=== PATIENT | female | born 1975 | race African-American/Black ===

== ENCOUNTER → 2019-06-09 | Outpatient (CLI) | payer SELFPAY ==
--- NOTE | 2019-06-09 12:43 | RADIOLOGY REPORT (SQ) ---
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 RADIONUCLIDE AND DOSE: 21.9 millicuries Tc99m HDP. The route of agent administration: Intravenous. ADDITIONAL DRUGS AND DOSES: None. TECHNIQUE: Routine delayed images at 3 hour post radionuclide injection acquired of the bony skeleto n including anterior and posterior whole-body projections and additional focused images as needed. LIMITATIONS: None. FINDINGS: BONES: Mild increased uptake in several right lower anterior ribs this may be positional o r could be related to trauma. This is not have the appearance of metastatic disease. Symmetric upta ke in the shoulders. Focal uptake in the right knee most likely degenerative. KIDNEYS: Symmetric excretion without obstruction. OTHER: No other significant finding. IMPRESSION: No evidence of metastatic disease. COMMENT: Quality measure 147: Current bone scan is compared with any available plain radiographs, p rior bone scans, and CT/MRI. TECHNICAL DOCUMENTATION: JOB ID: [id number] 2010 [employer]- All Rights Reserved Reading location - IP/workstation name: [email or web address]
== END ==
LOC: RAD 08:12
PROVIDERS: ATTEND Internal Medicine Hematology & Oncology
DX: C50.811 Malignant neoplasm of overlapping sites of right female breast (principal)
CPT/HCPCS: 78306; A9561; Q9969

== ENCOUNTER → 2019-06-11 | Outpatient (CLI) | payer SELFPAY ==
--- NOTE | 2019-06-11 09:26 | RADIOLOGY REPORT (SQ) ---
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 TECHNIQUE: CT scan of the chest performed using helical scanning technique with dynamic intravenous contrast injection. Images reviewed with lung, soft tissue and bone windows. Reconstructed coronal a nd sagittal MPR images reviewed. All images stored on PACS. All CT scanners at this facility use dose modulation, iterative reconstruction, and/or weight based d osing when appropriate to reduce radiation dose to as low as reasonably achievable (ALARA). [facility]: Dose Right [facility]: CareDose [facility]: Dose Right [facility]: Teradose 4D [facility]: Smart [employer] RADIATION DOSE: CT Rad equipment meets quality standard of care and radiation dose reduction techniq ues were employed. CTDIvol: 4.4 - 6.3 mGy. DLP: 856 mGy-cm. . LIMITATIONS: None. FINDINGS: AXILLAE: Small bilateral axillary lymph nodes. These are nonspecific. CHEST WALL: 5.8 x 3.6 cm right breast mass with decreased attenuation centrally which may represent n ecrosis. LUNGS: No nodules or masses. No pneumothorax. No infiltrates. PLEURA: No effusions. No calcifications. THYROID: No masses or significant asymmetry. HILAR AND MEDIASTINAL STRUCTURES: No identified masses or abnormal nodes. AORTA AND GREAT VESSELS: No aneurysm. No dissection. PULMONARY ARTERIES: No identified pulmonary emboli. Study not optimized for the pulmonary arteries. HEART: No pericardial effusion. HARDWARE AND LIFELINES: None. BONES: No significant finding. OTHER: No other significant finding. IMPRESSION: Large right breast mass. Small axillary lymph nodes. No other significant findings. COMPARISON: None. RADIATION DOSE: CT Rad equipment meets quality standard of care and radiation dose reduction techniq ues were employed. CTDIvol: 4.4 - 6.3 mGy. DLP: 856 mGy-cm. mGy. TECHNIQUE: CT scan of the abdomen and pelvis performed with intravenous and oral contrast using cely tito scanning technique with dynamic intravenous contrast injection. Images reviewed with lung, soft tissue and bone windows. Reconstructed coronal and sagittal MPR images reviewed. Delayed images for evaluation of the urinary system also acquired and evaluated. All images stored on PACS. All CT scanners at this facility use dose modulation, iterative reconstruction, and/or weight based d osing when appropriate to reduce radiation dose to as low as reasonably achievable (ALARA). [facility]: Dose Right [facility]: SureCare [facility]: Dose Right [facility]: Teradose 4D [facility]: [employer] FINDINGS: LIVER: Normal size. No masses. No dilated ducts. SPLEEN: Normal size. No focal lesions. PANCREAS: No masses. No significant calcifications. No adjacent inflammation or peripancreatic flui d collections. Pancreatic duct not dilated. GALLBLADDER: No identified stones by CT criteria. No inflammatory changes to suggest cholecystitis. ADRENAL GLANDS: No significant masses or asymmetry. RIGHT KIDNEY AND URETER: No solid masses. No significant calcifications. No hydronephrosis or hyd roureter. LEFT KIDNEY AND URETER: No solid masses. No significant calcifications. No hydronephrosis or hydr oureter. AORTA AND VESSELS: No aneurysm. No dissection. Renal arteries, SMA, celiac without stenosis. RETROPERITONEUM: No retroperitoneal adenopathy, hemorrhage or masses. LARGE AND SMALL BOWEL: No dilatation. No masses. No wall thickening. APPENDIX: Normal. ABDOMINAL WALL: No hernia or masses. PERITONEAL CAVITY: No free air. No free fluid. No peritoneal implants or masses. PELVIS: Heterogeneous attenuation within the uterus. Fibroids cannot be excluded. BONES: No significant or acute findings. OTHER: No other significant finding. IMPRESSION: No evidence of metastatic disease in the abdomen or pelvis. TECHNICAL DOCUMENTATION: JOB ID: [id number] Quality ID # 436: Final reports with documentation of one or more dose reduction techniques (e.g., Au tomated exposure control, adjustment of the mA and/or kV according to patient size, use of iterative reconstruction technique) 2010 [employer]- All Rights Reserved Reading location - IP/workstation name: [email or web address]
--- NOTE | 2019-06-11 09:26 | RADIOLOGY REPORT (SQ) ---
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 TECHNIQUE: CT scan of the chest performed using helical scanning technique with dynamic intravenous contrast injection. Images reviewed with lung, soft tissue and bone windows. Reconstructed coronal a nd sagittal MPR images reviewed. All images stored on PACS. All CT scanners at this facility use dose modulation, iterative reconstruction, and/or weight based d osing when appropriate to reduce radiation dose to as low as reasonably achievable (ALARA). [facility]: Dose Right [facility]: CareDose [facility]: Dose Right [facility]: Teradose 4D [facility]: Smart [employer] RADIATION DOSE: CT Rad equipment meets quality standard of care and radiation dose reduction techniq ues were employed. CTDIvol: 4.4 - 6.3 mGy. DLP: 856 mGy-cm. . LIMITATIONS: None. FINDINGS: AXILLAE: Small bilateral axillary lymph nodes. These are nonspecific. CHEST WALL: 5.8 x 3.6 cm right breast mass with decreased attenuation centrally which may represent n ecrosis. LUNGS: No nodules or masses. No pneumothorax. No infiltrates. PLEURA: No effusions. No calcifications. THYROID: No masses or significant asymmetry. HILAR AND MEDIASTINAL STRUCTURES: No identified masses or abnormal nodes. AORTA AND GREAT VESSELS: No aneurysm. No dissection. PULMONARY ARTERIES: No identified pulmonary emboli. Study not optimized for the pulmonary arteries. HEART: No pericardial effusion. HARDWARE AND LIFELINES: None. BONES: No significant finding. OTHER: No other significant finding. IMPRESSION: Large right breast mass. Small axillary lymph nodes. No other significant findings. COMPARISON: None. RADIATION DOSE: CT Rad equipment meets quality standard of care and radiation dose reduction techniq ues were employed. CTDIvol: 4.4 - 6.3 mGy. DLP: 856 mGy-cm. mGy. TECHNIQUE: CT scan of the abdomen and pelvis performed with intravenous and oral contrast using cely tito scanning technique with dynamic intravenous contrast injection. Images reviewed with lung, soft tissue and bone windows. Reconstructed coronal and sagittal MPR images reviewed. Delayed images for evaluation of the urinary system also acquired and evaluated. All images stored on PACS. All CT scanners at this facility use dose modulation, iterative reconstruction, and/or weight based d osing when appropriate to reduce radiation dose to as low as reasonably achievable (ALARA). [facility]: Dose Right [facility]: SureCare [facility]: Dose Right [facility]: Teradose 4D [facility]: [employer] FINDINGS: LIVER: Normal size. No masses. No dilated ducts. SPLEEN: Normal size. No focal lesions. PANCREAS: No masses. No significant calcifications. No adjacent inflammation or peripancreatic flui d collections. Pancreatic duct not dilated. GALLBLADDER: No identified stones by CT criteria. No inflammatory changes to suggest cholecystitis. ADRENAL GLANDS: No significant masses or asymmetry. RIGHT KIDNEY AND URETER: No solid masses. No significant calcifications. No hydronephrosis or hyd roureter. LEFT KIDNEY AND URETER: No solid masses. No significant calcifications. No hydronephrosis or hydr oureter. AORTA AND VESSELS: No aneurysm. No dissection. Renal arteries, SMA, celiac without stenosis. RETROPERITONEUM: No retroperitoneal adenopathy, hemorrhage or masses. LARGE AND SMALL BOWEL: No dilatation. No masses. No wall thickening. APPENDIX: Normal. ABDOMINAL WALL: No hernia or masses. PERITONEAL CAVITY: No free air. No free fluid. No peritoneal implants or masses. PELVIS: Heterogeneous attenuation within the uterus. Fibroids cannot be excluded. BONES: No significant or acute findings. OTHER: No other significant finding. IMPRESSION: No evidence of metastatic disease in the abdomen or pelvis. TECHNICAL DOCUMENTATION: JOB ID: [id number] Quality ID # 436: Final reports with documentation of one or more dose reduction techniques (e.g., Au tomated exposure control, adjustment of the mA and/or kV according to patient size, use of iterative reconstruction technique) 2010 [employer]- All Rights Reserved Reading location - IP/workstation name: [email or web address]
== END ==
LOC: RAD 08:05
PROVIDERS: ATTEND Internal Medicine Hematology & Oncology
DX: C50.811 Malignant neoplasm of overlapping sites of right female breast (principal)
CPT/HCPCS: 71260; 74177

== ENCOUNTER → 2019-06-23 | Outpatient (CLI) | payer SELFPAY ==
--- NOTE | 2019-06-23 16:56 | RADIOLOGY REPORT (SQ) ---
EXAM DESCRIPTION: NM MUGA REST IMAGES COMPLETED DATE/TIME: 06/23/2019 12:16 pm REASON FOR STUDY: Z08 ENCNTR FOR FOLLOW-UP EXAM AFTER TRTMT FOR MALIGNANT NEOPLASM, C50.811 M Z08 E NCNTR FOR FOLLOW-UP EXAM AFTER TRTMT FOR MALIGNANT NEOP C50.811 MALIGNANT NEOPLASM OF OVRLP SITES OF RIGHT FEMALE BR COMPARISON: None. RADIONUCLIDE AND DOSE: 25.6 mCi technetium 99m labeled red blood cells The route of agent administration: Intravenous TECHNIQUE: Following administration of the radionuclide, gated images of the heart are obtained in t hree projections. Left ventricular functional analysis performed. LIMITATIONS: None. FINDINGS: LEFT VENTRICULAR FUNCTION: EJECTION FRACTION: 65%. END-DIASTOLIC VOLUME: 205 mL. END-SYSTOLIC VOLUME: 85 mL. WALL MOTION: No focal wall motion abnormalities. OTHER: No other significant finding. IMPRESSION: NORMAL CARDIAC MUGA STUDY. NORMAL LEFT VENTRICULAR FUNCTION WITH VALUES ABOVE. TECHNICAL DOCUMENTATION: JOB ID: [id number] 2010 [employer]- All Rights Reserved Reading location - IP/workstation name: [email or web address]
== END ==
LOC: RAD 10:39
PROVIDERS: ATTEND Internal Medicine Hematology & Oncology
DX: Z08 Encounter for follow-up examination after completed treatment for malignant neoplasm (principal); C50.811 Malignant neoplasm of overlapping sites of right female breast
CPT/HCPCS: 78472; A9560; Q9969

== ENCOUNTER 2019-06-25 09:58 | Outpatient (CLI) | payer SELFPAY ==
[~2019-06-25 09:58] MED LIST: CYCLOPHOSPHAMIDE IV PRN; DEXAMETHASONE 10 MG in NS 50 ML IV PRN; DOXORUBICIN HCL 110 MG in SYRINGE, DISPOSABLE, 1 EACH IV PRN; FOSAPREPITANT 150 MG in NS 150 ML IV PRN; NORMAL SALINE 500 ML @ KVO IV PRN; NORMAL SALINE IV PRN; PALONOSETRON 0.25 MG/5 ML VIAL IV PRN
[2019-06-25 10:26] VITALS: BP 122/79
== END 2019-06-25 13:13 | disposition home or self-care (01) ==
LOC: II 09:58 → 5TH 10:38 → II 13:13
PROVIDERS: ATTEND Internal Medicine Hematology & Oncology
DX: Z51.11 Encounter for antineoplastic chemotherapy (principal); C50.811 Malignant neoplasm of overlapping sites of right female breast
CPT/HCPCS: 96411; 96413; 96367; 96375; 96361; J9070; J9000; J7050 ×2; J3490; J1100; J1453; J2469; J1642

== ENCOUNTER 2019-06-26 12:23 | Outpatient (CLI) | payer SELFPAY ==
[~2019-06-26 12:23] MED LIST changes: -CYCLOPHOSPHAMIDE IV PRN; -DEXAMETHASONE 10 MG in NS 50 ML IV PRN; -DOXORUBICIN HCL 110 MG in SYRINGE, DISPOSABLE, 1 EACH IV PRN; -FOSAPREPITANT 150 MG in NS 150 ML IV PRN; -NORMAL SALINE 500 ML @ KVO IV PRN; -NORMAL SALINE IV PRN; -PALONOSETRON 0.25 MG/5 ML VIAL IV PRN; +PEGFILGRASTIM-CBQV 6 MG/0.6 ML SYRINGE SUBCUT PRN
[2019-06-26 12:31] VITALS: BP 111/66
== END 2019-06-26 13:05 | disposition home or self-care (01) ==
LOC: II 12:23 → 5TH 12:28 → II 13:05
PROVIDERS: ATTEND Internal Medicine Hematology & Oncology
DX: Z76.89 Persons encountering health services in other specified circumstances (principal); C50.811 Malignant neoplasm of overlapping sites of right female breast
CPT/HCPCS: 96372; Q5111

== ENCOUNTER 2019-07-09 10:07 | Outpatient (CLI) | payer SELFPAY ==
[~2019-07-09 10:07] MED LIST changes: +CYCLOPHOSPHAMIDE IV PRN; +DEXAMETHASONE 10 MG in NS 50 ML IV PRN; +DISPOSABLE IV PRN; +DOXORUBICIN HCL IV PRN; +FOSAPREPITANT 150 MG in NS 150 ML IV PRN; +NORMAL SALINE 500 ML @ KVO IV PRN; +NORMAL SALINE 500 ML IV PRN; +NORMAL SALINE IV PRN; +PALONOSETRON 0.25 MG/5 ML VIAL IV PRN; -PEGFILGRASTIM-CBQV 6 MG/0.6 ML SYRINGE SUBCUT PRN
[2019-07-09 10:17] VITALS: BP 114/82
== END 2019-07-09 12:30 | disposition home or self-care (01) ==
LOC: II 10:07 → 5TH 10:08 → II 12:30
PROVIDERS: ATTEND Internal Medicine Hematology & Oncology
DX: Z51.11 Encounter for antineoplastic chemotherapy (principal); C50.811 Malignant neoplasm of overlapping sites of right female breast
CPT/HCPCS: 96411; 96413; 96367; 96375; J9070; J9000; J7050 ×2; J3490; J1100; J1453; J2469; J1642; 96417

== ENCOUNTER 2019-07-10 12:17 | Outpatient (CLI) | payer SELFPAY ==
[~2019-07-10 12:17] MED LIST changes: -CYCLOPHOSPHAMIDE IV PRN; -DEXAMETHASONE 10 MG in NS 50 ML IV PRN; -DISPOSABLE IV PRN; -DOXORUBICIN HCL IV PRN; -FOSAPREPITANT 150 MG in NS 150 ML IV PRN; -NORMAL SALINE 500 ML @ KVO IV PRN; -NORMAL SALINE 500 ML IV PRN; -NORMAL SALINE IV PRN; -PALONOSETRON 0.25 MG/5 ML VIAL IV PRN; +PEGFILGRASTIM-CBQV 6 MG/0.6 ML SYRINGE SUBCUT PRN
[2019-07-10 12:22] VITALS: BP 118/63
== END 2019-07-10 12:31 | disposition home or self-care (01) ==
LOC: II 12:17 → 5TH 12:22 → II 12:31
PROVIDERS: ATTEND Internal Medicine Hematology & Oncology
DX: Z76.89 Persons encountering health services in other specified circumstances (principal); C50.811 Malignant neoplasm of overlapping sites of right female breast
CPT/HCPCS: 96372; Q5111

== ENCOUNTER 2019-07-23 09:46 | Outpatient (CLI) | payer SELFPAY ==
[~2019-07-23 09:46] MED LIST changes: +CYCLOPHOSPHAMIDE IV PRN; +DEXAMETHASONE 10 MG in NS 50 ML IV PRN; +DISPOSABLE IV PRN; +DOXORUBICIN HCL IV PRN; +FERUMOXYTOL (NON-ESRD) 510 MG/NS 100 ML IV PRN; +FOSAPREPITANT 150 MG in NS 150 ML IV PRN; +NORMAL SALINE 500 ML @ KVO IV PRN; +NORMAL SALINE IV PRN; +PALONOSETRON 0.25 MG/5 ML VIAL IV PRN; -PEGFILGRASTIM-CBQV 6 MG/0.6 ML SYRINGE SUBCUT PRN
[2019-07-23 09:55] VITALS: BP 118/70
== END 2019-07-23 12:46 | disposition home or self-care (01) ==
LOC: II 09:46 → 5TH 09:49 → II 12:46
PROVIDERS: ATTEND Internal Medicine Hematology & Oncology
DX: Z51.11 Encounter for antineoplastic chemotherapy (principal); C50.811 Malignant neoplasm of overlapping sites of right female breast
CPT/HCPCS: 96413; 96367; 96375; 96417; Q0138; J9070; J9000; J7050 ×2; J3490; J1100; J1453; J2469; J1642; 96411

== ENCOUNTER 2019-07-24 13:01 | Outpatient (CLI) | payer SELFPAY ==
[~2019-07-24 13:01] MED LIST changes: -CYCLOPHOSPHAMIDE IV PRN; -DEXAMETHASONE 10 MG in NS 50 ML IV PRN; -DISPOSABLE IV PRN; -DOXORUBICIN HCL IV PRN; -FERUMOXYTOL (NON-ESRD) 510 MG/NS 100 ML IV PRN; -FOSAPREPITANT 150 MG in NS 150 ML IV PRN; -NORMAL SALINE 500 ML @ KVO IV PRN; -NORMAL SALINE IV PRN; -PALONOSETRON 0.25 MG/5 ML VIAL IV PRN; +PEGFILGRASTIM-CBQV 6 MG/0.6 ML SYRINGE SUBCUT PRN
[2019-07-24 13:17] VITALS: BP 123/72
== END 2019-07-24 13:19 | disposition home or self-care (01) ==
LOC: II 13:01 → 5TH 13:02 → II 13:19
PROVIDERS: ATTEND Internal Medicine
DX: Z76.89 Persons encountering health services in other specified circumstances (principal); C50.811 Malignant neoplasm of overlapping sites of right female breast
CPT/HCPCS: 96372; Q5111

== ENCOUNTER 2019-07-28 19:55 | Observation (INO) | payer SELFPAY ==
--- NOTE | 2019-07-28 20:31 | ER Document Report ---
ED General - General Chief Complaint: Nausea/Vomiting Stated Complaint: WEAKNESS Time Seen by Provider: 07/28/19 20:23 Primary Care Provider: DOMINGA MARCANO MD [ACTIVE STAFF] - Follow up as needed Mode of Arrival: Ambulatory Information source: Patient Notes: triage notes Pt to ED via EMS re: syncopal episode this evening, and weakness, N/V since Sun. when she received her last IV chemo tx. Today experienced syncopal episode in shower today and now has ringing in her left ear. Denies pain or injury from fall. Advises very poor PO intake since Sun. as she has been very nauseated and vomiting. Advises she vomited 4-5 times today. Took phenergan at approximately 1900pm and denies nausea at this time.Denies diarrhea. Advises hx R breast CA with 3 chemo treatments completed and surgical consult next week. Port L upper Cx. NKDA. Only current medication phenergan. AOX4, NAD, Respirations e/u. V/S obtained. V/S stable at this time. IV initiated by EMS. my notes 44-year-old black female arrives by EMS with chief complaint of syncopal episode while in the shower this evening. She denies any seizures but has some bruising to her right anterior tongue. She reports she has been using Magic mouthwash Alisha because of irritated tongue recently. She just finished chemo last Sunday. Patient has breast cancer that was diagnosed in May of this year. Patient's markers are triple negative. patient reports she has been receiving Taxotere also known as tyonek according to her. Patient advises she also received some Decadron dexamethasone. She reports Zofran does not help with her nausea. She advises that Phenergan works better but also makes her very sleepy. Patient denies any chest pain headache neck pain abdomen pain. TRAVEL OUTSIDE OF THE [place] IN LAST 30 DAYS: No - HPI Onset: Just prior to arrival Onset/Duration: Sudden Quality of pain: No pain Severity: None Associated symptoms: None Exacerbated by: Denies Relieved by: Denies Similar symptoms previously: No Recently seen / treated by doctor: No - Related Data Allergies/Adverse Reactions: No Known Allergies Allergy (Verified 07/28/19 20:01) Home Medications: Zofran PRn -re:chemo Past Medical History - General Information source: Patient - Social History Smoking Status: Never Smoker Cigarette use (# per day): No Chew tobacco use (# tins/day): No Smoking Education Provided: No Frequency of alcohol use: None Drug Abuse: None Lives with: Family Family History: Reviewed & Not Pertinent Patient has suicidal ideation: No Patient has homicidal ideation: No Review of Systems - Review of Systems Constitutional: See HPI, Malaise, Weakness, Recent illness EENT: No symptoms reported Cardiovascular: No symptoms reported Respiratory: No symptoms reported Gastrointestinal: No symptoms reported Genitourinary: No symptoms reported Female Genitourinary: No symptoms reported Musculoskeletal: No symptoms reported Skin: No symptoms reported Hematologic/Lymphatic: No symptoms reported Neurological/Psychological: No symptoms reported, Lost consciousness Physical Exam - Vital signs Vitals: Temp 98.9 F 07/28/19 19:55 Interpretation: Hypotensive - General General appearance: Alert - HEENT Head: Normocephalic, Atraumatic Eyes: Normal Pupils: PERRL Nasal: Normal Mouth/Lips: Normal Mucous membranes: Dry Pharynx: Normal Neck: Normal - Respiratory Respiratory status: No respiratory distress Chest status: Nontender Breath sounds: Normal Chest palpation: Normal - Cardiovascular Rhythm: Regular Heart sounds: Normal auscultation Murmur: No - Abdominal Inspection: Normal Distension: No distension Bowel sounds: Normal Tenderness: Nontender Organomegaly: No organomegaly - Rectal Stool: Other - defered - Back Back: Normal - Extremities General upper extremity: Normal inspection General lower extremity: Normal inspection - Psychological Associated symptoms: Normal affect - Skin Skin Temperature: Warm Skin Moisture: Dry Course - Vital Signs Vital signs: Temp Pulse Resp BP Pulse Ox 98.9 F 9 L 106/73 100 07/28/19 19:55 07/28/19 21:02 07/28/19 21:02 07/28/19 21:02 - Laboratory Result Diagrams: 07/28/19 20:50 07/28/19 20:50 Laboratory results interpreted by me: 07/28/19 07/28/19 20:50 20:50 WBC 13.5 H RBC 3.60 L Hgb 10.2 L Hct 29.6 L RDW 21.2 H Seg Neuts % (Manual) 91 H Band Neutrophils % 1 L Lymphocytes % (Manual) 7 L Monocytes % (Manual) 1 L Abs Neuts (Manual) 12.4 H Sodium 135.6 L Chloride 96 L Carbon Dioxide 31 H Glucose 117 H - Diagnostic Test Radiology reviewed: Reports reviewed - EKG Interpretation by Me EKG shows normal: Sinus rhythm Critical Care Note - Critical Care Note Total time excluding time spent on procedures (mins): 90 Comments: I discussed this case with Dr. Mcguire oncology and she advises admission. This was at [address] Smallwood. I spoke with Dr. Smallwood at 2330 and he advised telemetry Discharge - Discharge Clinical Impression: Atypical syncope, Hypotension Breast cancer Qualifiers: Breast location: unspecified site of breast Estrogen receptor status: negative Patient sex: female Laterality: unspecified laterality Qualified Code(s): C50.919 - Malignant neoplasm of unspecified site of unspecified female breast; Z17.1 - Estrogen receptor negative status [ER-] Condition: Fair Disposition: ADMITTED INPATIENT Admitting Provider: Cl (Hospitalist) Unit Admitted: Telemetry Referrals: DOMINGA MARCANO MD [ACTIVE STAFF] - Follow up as needed
[2019-07-28] MEDS ORDERED: PROMETHAZINE HCL INJ 25 MG/1 ML VIAL IV ONE (20:40)
[2019-07-28] MEDS: NORMAL SALINE 1000 ML 1,000 ML IV PRN ×2 (21:05→22:10)
[2019-07-28 21:10] LABS: HEMATOCRIT 29.6 % (36.0-47.0); HEMOGLOBIN 10.2 g/dL (12.0-15.5); MEAN CORPUSCULAR HEMOGLOBIN 28.3 pg (27.0-33.4); MEAN CORPUSCULAR HGB CONC 34.4 g/dL (32.0-36.0); MEAN CORPUSCULAR VOLUME 82 fl (80-97); PLATELET COUNT 231 10^3/uL (150-450); RED CELL DISTRIBUTION WIDTH 21.2 % (11.5-14.0); WHITE BLOOD COUNT 13.5 10^3/uL (4.0-10.5)
[2019-07-28 21:19] LABS: INTERNATIONAL RATION (INR) 0.95; PROTHROMBIN TIME 12.6 SEC (11.4-15.4)
[2019-07-28 21:20] LABS: PARTIAL THROMBOPLASTIN TIME 25.2 SEC (23.5-35.8)
--- NOTE | 2019-07-28 21:20 | RADIOLOGY REPORT (SQ) ---
EXAM DESCRIPTION: XR CHEST 1 VIEW COMPLETED DATE/TME: 07/28/2019 20:31 CLINICAL HISTORY: 44 years Female syncope COMPARISON: 06/11/2019. FINDINGS: The cardiomediastinal silhouette appears unremarkable. No consolidating infiltrates or pleural effusions. No pneumothorax. IMPRESSION: No acute abnormality is identified.
--- NOTE | 2019-07-28 21:26 | RADIOLOGY REPORT (SQ) ---
EXAM DESCRIPTION: CT HEAD WITHOUT IV CONTRAST COMPLETED DATE/TME: 07/28/2019 20:31 CLINICAL HISTORY: 44 years Female syncope COMPARISON: None. TECHNIQUE: Contiguous axial CT images obtained through the brain without IV contrast. This exam was performed according to our department optimization program which includes automated exposure control, adjustment of the mA and/or kv according to patient size and/or use of iterative reconstruction technique. FINDINGS: The ventricles and sulci are within normal limits for the patient's age. No midline shift or mass effect. No masses identified. No acute intracranial hemorrhage. No fluid or significant mucosal thickening in the visualized paranasal sinuses. No depressed calvarial fractures. IMPRESSION: No acute intracranial abnormality is identified.
[2019-07-28 21:28] LABS: ALBUMIN 4.3 g/dL (3.5-5.0); ALKALINE PHOSPHATASE 81 U/L (38-126); ANION GAP 9 (5-19); ASPARTATE AMINO TRANSFERASE 16 U/L (14-36); BILIRUBIN,TOTAL 0.5 mg/dL (0.2-1.3); BLOOD UREA NITROGEN 14 mg/dL (7-20); CALCIUM 9.9 mg/dL (8.4-10.2); CARBON DIOXIDE 31 mmol/L (22-30); CHLORIDE 96 mmol/L (98-107); GLUCOSE 117 mg/dL (75-110); POTASSIUM 3.7 mmol/L (3.6-5.0); TOTAL PROTEIN 7.1 g/dL (6.3-8.2)
[2019-07-28 21:35] LABS: ABSOLUTE LYMPHOCYTES# (MANUAL) 0.9 10^3/uL (0.5-4.7); ABSOLUTE MONOCYTES # (MANUAL) 0.1 10^3/uL (0.1-1.4); BAND NEUTROPHILS % (MANUAL) 1 % (3-5); BASOPHILS % (MANUAL) 0 % (0-2); EOSINOPHILS % (MANUAL) 0 % (0-6); LYMPHOCYTES % (MANUAL) 7 % (13-45); MONOCYTES % (MANUAL) 1 % (3-13); SEGMENTED NEUTROPHILS % (MAN) 91 % (42-78); TOTAL CELLS COUNTED 100
[2019-07-28 21:37] LABS: ANISOCYTOSIS 3+; OVALOCYTES SLIGHT; POIKILOCYTOSIS 1+; TOXIC VACUOLATION PRESENT
[2019-07-28 21:38] LABS: PLATELET COMMENT ADEQUATE; TEAR DROP CELLS 1+
--- NOTE | 2019-07-28 21:41 | EKG REPORT ---
SEVERITY:- BORDERLINE ECG - SINUS RHYTHM BORDERLINE T ABNORMALITIES, ANTERIOR LEADS : Confirmed by: Wing Peck MD 28-Jul-2019 21:41:02
[2019-07-28] MEDS ORDERED: VANCOMYCIN HCL INJ 1000 MG VIAL IV ONE (23:07)
[2019-07-28] MEDS ORDERED: PIPERACILLIN/TAZOBACTAM 3.375 GM VIAL IV ONE (23:08)
[2019-07-28] MEDS ORDERED: ACETAMINOPHEN 325 MG TABLET PO PRN (23:36)
[2019-07-28] MEDS ORDERED: NALOXONE HCL INJ/PF 0.4 MG/1 ML SDV IV PRN (23:36)
[2019-07-28] MEDS ORDERED: IPRATROPIUM/ALBUTEROL 0.5-2.5 MG/3 ML AMPUL NEB PRN (23:36)
[2019-07-28] MEDS ORDERED: MAG HYDROX/AL HYDROX/SIMETH SUSP 30 ML UDCUP PO PRN (23:36)
[2019-07-29] MEDS: NORMAL SALINE 1000 ML 1,000 ML IV ONE ×2 (00:30→02:58)
[2019-07-29 02:18] LABS: URINE AMPHETAMINES SCREEN NEGATIVE; URINE BARBITURATES SCREEN NEGATIVE; URINE BENZODIAZEPINES SCREEN NEGATIVE; URINE COCAINE SCREEN NEGATIVE; URINE MARIJUANA (THC) SCREEN NEGATIVE; URINE METHADONE SCREEN NEGATIVE; URINE PHENCYCLIDINE SCREEN NEGATIVE
[2019-07-29] MEDS ORDERED: VANCOMYCIN HCL INJ 1000 MG VIAL IV ONE (02:45)
[2019-07-29] MEDS: NORMAL SALINE 1000 ML 1,000 ML IV PRN ×2 (02:57→09:08)
--- NOTE | 2019-07-29 03:59 | PDOC H&P ---
History of Present Illness Admission Date/PCP: 07/28/19 23:41 HENRIQUE MOHAN MD Patient complains of: Passing out in the shower History of Present Illness: MATEUS RAMSEY is a 44 year old female with a past medical history of triple negative breast cancer diagnosed May 2019 under the care of Dr. hernandez receiving Traxotere, Decadron and Phenergan. She presents 12 hours after intractable nausea vomiting minimally relieved by Zofran and partially improved with Phenergan. 2 hours prior to presentation she had a syncopal episode while in the shower without subsequent injury prompting evaluation emergency department where she is found to have mild hypotension without tachycardia or fever and leukocytosis without source. She denies nausea vomiting or pain she receives IV fluids, empiric antibiotics and referred to the hospitalist for admission. She denies chest pain, palpitations, diaphoresis or shortness of breath. Past Medical History Malignancy Medical History: Reports: Breast Cancer Hematology: Reports: Anemia Past Surgical History Past Surgical History: Reports: Tonsillectomy, Tubal Ligation Social History Information Source: Patient Lives with: Family Smoking Status: Never Smoker Electronic Cigarette use?: No Drugs: None - Advance Directive Resuscitation Status: Full Code Family History Family History: Hypertension Parental Family History Reviewed: Yes Children Family History Reviewed: Yes Sibling(s) Family History Reviewed.: Yes Medication/Allergy Home Medications: No Home Medications 06/24/19 Allergies/Adverse Reactions: No Known Allergies Allergy (Verified 07/28/19 20:01) Review of Systems Constitutional: ABSENT: chills, fever(s), headache(s), weight gain, weight loss Eyes: ABSENT: visual disturbances Ears: ABSENT: hearing changes Cardiovascular: ABSENT: chest pain, dyspnea on exertion, edema, orthropnea, palpitations Respiratory: ABSENT: cough, hemoptysis Gastrointestinal: PRESENT: as per HPI, nausea, vomiting. ABSENT: abdominal pain, constipation, diarrhea, hematemesis, hematochezia Genitourinary: ABSENT: dysuria, hematuria Musculoskeletal: ABSENT: joint swelling Integumentary: ABSENT: rash, wounds Neurological: ABSENT: abnormal gait, abnormal speech, confusion, dizziness, focal weakness, syncope Psychiatric: ABSENT: anxiety, depression, homidical ideation, suicidal ideation Endocrine: ABSENT: cold intolerance, heat intolerance, polydipsia, polyuria Hematologic/Lymphatic: ABSENT: easy bleeding, easy bruising Physical Exam Vital Signs: Temp Pulse Resp BP Pulse Ox 98.0 F 70 16 112/57 L 100 07/29/19 00:19 07/29/19 00:19 07/29/19 00:19 07/29/19 00:19 07/29/19 00:19 Intake & Output 07/27/19 07/28/19 07/29/19 11:59 11:59 11:59 Intake Total 1999 Balance 1999 Weight 76.5 kg General appearance: PRESENT: no acute distress, well-developed, well-nourished Head exam: PRESENT: atraumatic, normocephalic Eye exam: PRESENT: conjunctiva pink, EOMI, PERRLA. ABSENT: scleral icterus Ear exam: PRESENT: normal external ear exam Mouth exam: PRESENT: moist, tongue midline Neck exam: ABSENT: carotid bruit, JVD, lymphadenopathy, thyromegaly Respiratory exam: PRESENT: clear to auscultation lj. ABSENT: rales, rhonchi, wheezes Cardiovascular exam: PRESENT: RRR. ABSENT: diastolic murmur, rubs, systolic murmur Pulses: PRESENT: normal dorsalis pedis pul Vascular exam: PRESENT: normal capillary refill GI/Abdominal exam: PRESENT: normal bowel sounds, soft. ABSENT: distended, guarding, mass, organolmegaly, rebound, tenderness Rectal exam: PRESENT: deferred Extremities exam: PRESENT: full ROM. ABSENT: calf tenderness, clubbing, pedal edema Neurological exam: PRESENT: alert, awake, oriented to person, oriented to place, oriented to time, oriented to situation, CN II-XII grossly intact. ABSENT: motor sensory deficit Psychiatric exam: PRESENT: appropriate affect, normal mood. ABSENT: homicidal ideation, suicidal ideation Skin exam: PRESENT: dry, intact, warm. ABSENT: cyanosis, rash Results Laboratory Results: 07/28/19 20:50 07/28/19 20:50 07/28/19 07/28/19 07/28/19 20:50 20:50 20:50 WBC 13.5 H RBC 3.60 L Hgb 10.2 L Hct 29.6 L MCV 82 MCH 28.3 MCHC 34.4 RDW 21.2 H Plt Count 231 Seg Neutrophils % Not Reportable Sodium 135.6 L Potassium 3.7 Chloride 96 L Carbon Dioxide 31 H Anion Gap 9 BUN 14 Creatinine 0.71 Est GFR ( Amer) > 60 Glucose 117 H Lactic Acid 1.4 Calcium 9.9 Magnesium Total Bilirubin 0.5 AST 16 Alkaline Phosphatase 81 Total Protein 7.1 Albumin 4.3 07/29/19 00:29 WBC RBC Hgb Hct MCV MCH MCHC RDW Plt Count Seg Neutrophils % Sodium Potassium Chloride Carbon Dioxide Anion Gap BUN Creatinine Est GFR ( Amer) Glucose Lactic Acid Calcium Magnesium 2.2 Total Bilirubin AST Alkaline Phosphatase Total Protein Albumin 07/28/19 07/29/19 20:50 00:29 Troponin I < 0.012 < 0.012 Impressions: Chest X-Ray 07/28/19 20:31 IMPRESSION: No acute abnormality is identified. Head CT 07/28/19 20:31 IMPRESSION: No acute intracranial abnormality is identified. Assessment and Plan - Diagnosis (1) Atypical syncope Is this a current diagnosis for this admission?: Yes Plan: Telemetry observation, orthostatic blood pressures, 2 L normal saline challenge follow-up cardiac enzymes and telemetry (2) Breast cancer Qualifiers: Breast location: unspecified site of breast Estrogen receptor status: negative Patient sex: female Laterality: unspecified laterality Qualified Code(s): C50.919 - Malignant neoplasm of unspecified site of unspecified female breast; Z17.1 - Estrogen receptor negative status [ER-] Is this a current diagnosis for this admission?: Yes Plan: Consider oncology consult (3) Hypotension Is this a current diagnosis for this admission?: Yes Plan: Most likely secondary to Phenergan and mild dehydration, minimize Phenergan, normal saline challenge, Barry stockings and follow-up orthostatic blood pressure evaluation. - Time Time Spent with patient: 25-34 minutes - Inpatient Certification Medical Necessity: Need Close Monitoring Due to Risk of Patient Decompensation
[2019-07-29] MEDS ORDERED: HEPARIN SOD (PORCINE) 5,000 UNIT/ML 1 ML VIAL SUBCUT SCH (06:00)
[2019-07-29 07:29] LABS: HEMATOCRIT 26.1 % (36.0-47.0); MEAN CORPUSCULAR HEMOGLOBIN 28.3 pg (27.0-33.4); MEAN CORPUSCULAR HGB CONC 34.6 g/dL (32.0-36.0); MEAN CORPUSCULAR VOLUME 82 fl (80-97); PLATELET COUNT 211 10^3/uL (150-450); RED BLOOD COUNT 3.19 10^6/uL (3.72-5.28); RED CELL DISTRIBUTION WIDTH 21.1 % (11.5-14.0); WHITE BLOOD COUNT 9.5 10^3/uL (4.0-10.5)
[2019-07-29 07:46] LABS: ABSOLUTE LYMPHOCYTES# (MANUAL) 0.6 10^3/uL (0.5-4.7); ABSOLUTE MONOCYTES # (MANUAL) 0.3 10^3/uL (0.1-1.4); BAND NEUTROPHILS % (MANUAL) 4 % (3-5); BASOPHILS % (MANUAL) 0 % (0-2); EOSINOPHILS % (MANUAL) 0 % (0-6); LYMPHOCYTES % (MANUAL) 6 % (13-45); MONOCYTES % (MANUAL) 3 % (3-13); SEGMENTED NEUTROPHILS % (MAN) 87 % (42-78); TOTAL CELLS COUNTED 100
[2019-07-29 07:47] LABS: ANISOCYTOSIS 3+; PLATELET COMMENT ADEQUATE; POIKILOCYTOSIS 1+; SCHISTOCYTES SLIGHT; TEAR DROP CELLS 1+
[2019-07-29 07:49] LABS: ANION GAP 8 (5-19); BLOOD UREA NITROGEN 10 mg/dL (7-20); CALCIUM 8.6 mg/dL (8.4-10.2); CARBON DIOXIDE 25 mmol/L (22-30); CHLORIDE 105 mmol/L (98-107); GLUCOSE 80 mg/dL (75-110); POTASSIUM 4.1 mmol/L (3.6-5.0)
[2019-07-29 07:55] LABS: CREATINE KINASE < 20 U/L (30-135)
--- NOTE | 2019-07-29 08:11 | Progress Note ---
Provider Note Provider Note: Patient received cycle #3/4 Adriamycin/Cytoxan on 07/23/19 with Neulasta support on 07/24/19. She is scheduled for cycle #4 on 08/06/2019. She also received 2 doses of IV iron in the past month. The growth factors could be contributing to her elevated WBC count. WBC count on 07/22/2019 was 15.8. Of course, we will hold all chemo until she is feeling better. Please call me with any questions or concerns.
[2019-07-29] MEDS ORDERED: DOCUSATE SODIUM 100 MG CAPSULE PO SCH (10:00)
--- NOTE | 2019-07-29 11:00 | PDOC DISCHARGE SUMMARY ---
Impression - Admit/DC Date/PCP Admission Date/Primary Care Provider: 07/28/19 23:41 HENRIQUE MOHAN MD Discharge Date: 07/29/19 - Discharge Diagnosis (1) Atypical syncope Is this a current diagnosis for this admission?: Yes (2) Hypotension Is this a current diagnosis for this admission?: Yes (3) Breast cancer Is this a current diagnosis for this admission?: Yes - Additional Information Resuscitation Status: Full Code Discharge Diet: Regular Discharge Activity: Activity As Tolerated, Balance Activity w/Rest Referrals: DOMINGA MARCANO MD [ACTIVE STAFF] - 08/05/19 1:00 pm (MONDAY 07/31 AT 12:00 FOR IV FLUIDS AT OFFICE) Home Medications: Dexamethasone [Decadron 4 mg Tablet] 4 mg PO BID 07/29/19 Metoclopramide HCl [Reglan 10 mg Tablet] 10 mg PO Q6 07/29/19 Ondansetron HCl [Zofran 8 mg Tablet] 8 mg PO Q8HP PRN 07/29/19 Promethazine HCl [Phenergan 25 mg Tablet] 25 mg PO Q6HP PRN 07/29/19 History of Present Illiness History of Present Illness: MATEUS RAMSEY is a 44 year old female with a past medical history of triple negative breast cancer diagnosed May 2019 under the care of Dr. hernandez receiving Traxotere, Decadron and Phenergan. She presents 12 hours after intractable nausea vomiting minimally relieved by Zofran and partially improved with Phenergan. 2 hours prior to presentation she had a syncopal episode while in the shower without subsequent injury prompting evaluation emergency department where she is found to have mild hypotension without tachycardia or fever and leukocytosis without source. She denies nausea vomiting or pain she receives IV fluids, empiric antibiotics and referred to the hospitalist for admission. She denies chest pain, palpitations, diaphoresis or shortness of breath. Hospital Course Hospital Course: The patient had an unremarkable hospital course. With aggressive IV fluids her orthostatic hypotension resolved and she is feeling much better. She is stable for discharge to home. Physical Exam Vital Signs: Temp Pulse Resp BP Pulse Ox 97.8 F 78 16 102/60 100 07/29/19 08:00 07/29/19 08:29 07/29/19 08:29 07/29/19 08:00 07/29/19 08:29 Intake & Output 07/28/19 07/29/19 07/30/19 06:59 06:59 06:59 Intake Total 2260 1000 Output Total 500 Balance 1760 1000 Weight 76.5 kg General appearance: PRESENT: no acute distress, cooperative, well-developed Head exam: PRESENT: atraumatic, normocephalic Respiratory exam: PRESENT: symmetrical, unlabored. ABSENT: tachypnea, wheezes Cardiovascular exam: PRESENT: RRR, +S1, +S2, systolic murmur - 2/6. ABSENT: irregular rhythm GI/Abdominal exam: PRESENT: normal bowel sounds, soft. ABSENT: distended, guarding, tenderness Rectal exam: PRESENT: deferred Gentrourinary exam: ABSENT: indwelling catheter Extremities exam: ABSENT: pedal edema Musculoskeletal exam: PRESENT: ambulatory, normal inspection Neurological exam: PRESENT: alert, awake, oriented to person, oriented to place, oriented to time, oriented to situation, CN II-XII grossly intact, motor sensory deficit. ABSENT: altered Psychiatric exam: PRESENT: appropriate affect. ABSENT: agitated, anxious Focused psych exam: ABSENT: delusional, paranoid, restlessness Results Laboratory Results: WBC 9.5 10^3/uL (4.0-10.5) 07/29/19 06:15 RBC 3.19 10^6/uL (3.72-5.28) L 07/29/19 06:15 Hgb 9.0 g/dL (12.0-15.5) L 07/29/19 06:15 Hct 26.1 % (36.0-47.0) L 07/29/19 06:15 MCV 82 fl (80-97) 07/29/19 06:15 MCH 28.3 pg (27.0-33.4) 07/29/19 06:15 MCHC 34.6 g/dL (32.0-36.0) 07/29/19 06:15 RDW 21.1 % (11.5-14.0) H 07/29/19 06:15 Plt Count 211 10^3/uL (150-450) 07/29/19 06:15 Lymph % (Auto) Not Reportable 07/29/19 06:15 [place] % (Auto) Not Reportable 07/29/19 06:15 Eos % (Auto) Not Reportable 07/29/19 06:15 Baso % (Auto) Not Reportable 07/29/19 06:15 Absolute Neuts (auto) Not Reportable 07/29/19 06:15 Absolute Lymphs (auto) Not Reportable 07/29/19 06:15 Absolute Monos (auto) Not Reportable 07/29/19 06:15 Absolute Eos (auto) Not Reportable 07/29/19 06:15 Absolute Basos (auto) Not Reportable 07/29/19 06:15 Total Counted 100 07/29/19 06:15 Seg Neutrophils % Not Reportable 07/29/19 06:15 Seg Neuts % (Manual) 87 % (42-78) H 07/29/19 06:15 Band Neutrophils % 4 % (3-5) 07/29/19 06:15 Lymphocytes % (Manual) 6 % (13-45) L 07/29/19 06:15 Monocytes % (Manual) 3 % (3-13) 07/29/19 06:15 Eosinophils % (Manual) 0 % (0-6) 07/29/19 06:15 Basophils % (Manual) 0 % (0-2) 07/29/19 06:15 Abs Neuts (Manual) 8.6 10^3/uL (1.7-8.2) H 07/29/19 06:15 Abs Lymphs (Manual) 0.6 10^3/uL (0.5-4.7) 07/29/19 06:15 Abs Monocytes (Manual) 0.3 10^3/uL (0.1-1.4) 07/29/19 06:15 Absolute Eos (Manual) 0.0 10^3/uL (0.0-0.6) 07/29/19 06:15 Abs Basophils (Manual) 0.0 10^3/uL (0.0-0.2) 07/29/19 06:15 Toxic Vacuolation PRESENT 07/28/19 20:50 Platelet Comment ADEQUATE 07/29/19 06:15 Poikilocytosis 1+ 07/29/19 06:15 Anisocytosis 3+ 07/29/19 06:15 Tear Drop Cells 1+ 07/29/19 06:15 Ovalocytes SLIGHT 07/28/19 20:50 Schistocytes SLIGHT 07/29/19 06:15 PT 12.6 SEC (11.4-15.4) 07/28/19 20:50 INR 0.95 07/28/19 20:50 APTT 25.2 SEC (23.5-35.8) 07/28/19 20:50 Sodium 137.5 mmol/L (137-145) 07/29/19 06:15 Potassium 4.1 mmol/L (3.6-5.0) 07/29/19 06:15 Chloride 105 mmol/L (98-107) 07/29/19 06:15 Carbon Dioxide 25 mmol/L (22-30) 07/29/19 06:15 Anion Gap 8 (5-19) 07/29/19 06:15 BUN 10 mg/dL (7-20) 07/29/19 06:15 Creatinine 0.58 mg/dL (0.52-1.25) 07/29/19 06:15 Est GFR ( Amer) > 60 (>60) 07/29/19 06:15 Est GFR (MDRD) Non-Af > 60 (>60) 07/29/19 06:15 Glucose 80 mg/dL (75-110) 07/29/19 06:15 Lactic Acid 1.4 mmol/L (0.7-2.1) 07/28/19 20:50 Calcium 8.6 mg/dL (8.4-10.2) 07/29/19 06:15 Magnesium 2.2 mg/dL (1.6-2.3) 07/29/19 00:29 Total Bilirubin 0.5 mg/dL (0.2-1.3) 07/28/19 20:50 Direct Bilirubin 0.0 mg/dL (0.0-0.4) 07/28/19 20:50 Neonat Total Bilirubin Not Reportable 07/28/19 20:50 Neonat Direct Bilirubin Not Reportable 07/28/19 20:50 Neonat Indirect Bili Not Reportable 07/28/19 20:50 AST 16 U/L (14-36) 07/28/19 20:50 ALT 15 U/L (<35) 07/28/19 20:50 Alkaline Phosphatase 81 U/L (38-126) 07/28/19 20:50 Creatine Kinase < 20 U/L (30-135) L 07/29/19 06:15 Troponin I < 0.012 ng/mL 07/29/19 06:15 Total Protein 7.1 g/dL (6.3-8.2) 07/28/19 20:50 Albumin 4.3 g/dL (3.5-5.0) 07/28/19 20:50 Urine Opiates Screen NEGATIVE 07/29/19 01:45 Urine Methadone Screen NEGATIVE 07/29/19 01:45 Ur Barbiturates Screen NEGATIVE 07/29/19 01:45 Ur Phencyclidine Scrn NEGATIVE 07/29/19 01:45 Ur Amphetamines Screen NEGATIVE 07/29/19 01:45 U Benzodiazepines Scrn NEGATIVE 07/29/19 01:45 Urine Cocaine Screen NEGATIVE 07/29/19 01:45 U Marijuana (THC) Screen NEGATIVE 07/29/19 01:45 07/28/19 07/29/19 07/29/19 20:50 00:29 06:15 Troponin I < 0.012 < 0.012 < 0.012 Impressions: Chest X-Ray 07/28/19 20:31 IMPRESSION: No acute abnormality is identified. Head CT 07/28/19 20:31 IMPRESSION: No acute intracranial abnormality is identified. Plan Health Concerns: The patient is in treatment for breast cancer. She is currently receiving chemotherapy under next treatment regimen is due in the beginning of August. She also reports that she has a surgical evaluation. Plan of Treatment: It is most likely that the adverse effects of chemotherapy (nausea and vomiting) caused transient hypovolemia. When she still in the shower with hot water she likely vasodilated and had the syncope episode. With aggressive IV fluids she no longer had orthostatic hypotension. I have instructed her to change positions slowly and stay well-hydrated. Goals: Completion of breast cancer treatment Time Spent: Greater than 30 Minutes Stroke Is this a Stroke Patient?: No Acute Heart Failure - Is this a Heart Failure Patient?: No
[2019-07-29 12:10] VITALS: BP 96/52
== END 2019-07-29 13:32 | disposition home or self-care (01) ==
LOC: ER 19:55 → INTOOBSV 23:41 → EH 23:41 → 4S 07-29 01:15
PROVIDERS: ADMIT Internal Medicine; ATTEND Hospitalist
DX: I95.1 Orthostatic hypotension (principal); C50.911 Malignant neoplasm of unspecified site of right female breast; R11.2 Nausea with vomiting, unspecified; D72.829 Elevated white blood cell count, unspecified; Z17.1 Estrogen receptor negative status [ER-]; Z98.51 Tubal ligation status; Z82.49 Family history of ischemic heart disease and other diseases of the circulatory system; Z79.899 Other long term (current) drug therapy
CPT/HCPCS: 93005; 99291; 99292; 96374; 36415 ×2; 87040; 82550; 83605; 83735; 85025 ×2; 85610; 85730; 87077; 80048; 80053; 84484 ×2; 80307; 87150 ×26; 71045; 70450; 93010; J1644; J2550; J7030 ×2; J3370; J2543

== ENCOUNTER 2019-07-30 13:57 | Outpatient (CLI) | payer SELFPAY ==
[~2019-07-30 13:57] MED LIST changes: +FERUMOXYTOL (NON-ESRD) 510 MG/NS 100 ML IV PRN; +NORMAL SALINE 250 ML IV PRN; -PEGFILGRASTIM-CBQV 6 MG/0.6 ML SYRINGE SUBCUT PRN
[2019-07-30 14:20] VITALS: BP 114/66
== END 2019-07-30 14:50 | disposition home or self-care (01) ==
LOC: II 13:57 → 5TH 13:59 → II 14:50
PROVIDERS: ATTEND Internal Medicine Hematology & Oncology
DX: C50.811 Malignant neoplasm of overlapping sites of right female breast (principal)
CPT/HCPCS: 96365; Q0138; J7050; J1642

== ENCOUNTER 2019-08-06 09:54 | Outpatient (CLI) | payer SELFPAY ==
[~2019-08-06 09:54] MED LIST changes: +CYCLOPHOSPHAMIDE IV PRN; +DEXAMETHASONE 10 MG in NS 50 ML IV PRN; +DOXORUBICIN HCL 110 MG in SYRINGE, DISPOSABLE, 1 EACH IV PRN; +FOSAPREPITANT 150 MG in NS 150 ML IV PRN; +LORAZEPAM INJ 2 MG/1 ML VIAL IV PRN; -NORMAL SALINE 250 ML IV PRN; +NORMAL SALINE 500 ML @ KVO IV PRN; +NORMAL SALINE IV PRN; +PALONOSETRON 0.25 MG/5 ML VIAL IV PRN
[2019-08-06 10:08] VITALS: BP 118/78
== END 2019-08-06 12:41 | disposition home or self-care (01) ==
LOC: II 09:54 → 5TH 10:22 → II 12:41
PROVIDERS: ATTEND Internal Medicine Hematology & Oncology
DX: Z51.11 Encounter for antineoplastic chemotherapy (principal); C50.811 Malignant neoplasm of overlapping sites of right female breast
CPT/HCPCS: 96411; 96413; 96367; 96375; J9070; J9000; J2060; J7050 ×2; J3490; J1100; J1453; J2469; J1642; Q0138

== ENCOUNTER 2019-08-07 13:57 | Outpatient (CLI) | payer SELFPAY ==
[~2019-08-07 13:57] MED LIST changes: -CYCLOPHOSPHAMIDE IV PRN; -DEXAMETHASONE 10 MG in NS 50 ML IV PRN; -DOXORUBICIN HCL 110 MG in SYRINGE, DISPOSABLE, 1 EACH IV PRN; -FERUMOXYTOL (NON-ESRD) 510 MG/NS 100 ML IV PRN; -FOSAPREPITANT 150 MG in NS 150 ML IV PRN; -LORAZEPAM INJ 2 MG/1 ML VIAL IV PRN; -NORMAL SALINE 500 ML @ KVO IV PRN; -NORMAL SALINE IV PRN; -PALONOSETRON 0.25 MG/5 ML VIAL IV PRN; +PEGFILGRASTIM-CBQV 6 MG/0.6 ML SYRINGE SUBCUT PRN
[2019-08-07 14:06] VITALS: BP 124/97
== END 2019-08-07 14:13 | disposition home or self-care (01) ==
LOC: II 13:57 → 5TH 13:58 → II 14:13
PROVIDERS: ATTEND Internal Medicine Hematology & Oncology
DX: Z76.89 Persons encountering health services in other specified circumstances (principal); C50.811 Malignant neoplasm of overlapping sites of right female breast
CPT/HCPCS: 96372; Q5111

== ENCOUNTER 2019-08-20 09:01 | Outpatient (CLI) | payer MEDICAID ==
[~2019-08-20 09:01] MED LIST changes: +DEXAMETHASONE 10 MG in NS 50 ML IV PRN; +DIPHENHYDRAMINE 50 MG in NS 50 ML IV PRN; +FAMOTIDINE 20 MG in NS 50 ML IV PRN; +NORMAL SALINE 250 ML @ KVO IV PRN; +NORMAL SALINE IV PRN; +PACLITAXEL SEMI SYNTHETIC IV PRN; -PEGFILGRASTIM-CBQV 6 MG/0.6 ML SYRINGE SUBCUT PRN
[2019-08-20 09:14] VITALS: BP 117/72
== END 2019-08-20 12:04 | disposition home or self-care (01) ==
LOC: II 09:01 → 5TH 09:04 → II 12:04
PROVIDERS: ATTEND Internal Medicine Hematology & Oncology
DX: Z51.11 Encounter for antineoplastic chemotherapy (principal); C50.811 Malignant neoplasm of overlapping sites of right female breast
CPT/HCPCS: 96413; 96367; J1200; J7050; J9267; S0028; J1100; J1642

== ENCOUNTER 2019-08-27 09:55 | Outpatient (CLI) | payer MEDICAID ==
[~2019-08-27 09:55] MED LIST changes: -DEXAMETHASONE 10 MG in NS 50 ML IV PRN; +DEXAMETHASONE SOD PHOSPHATE 10 MG in NORMAL SALINE 50 ML IV PRN; -DIPHENHYDRAMINE 50 MG in NS 50 ML IV PRN; +DIPHENHYDRAMINE HCL 50 MG in NORMAL SALINE 50 ML IV PRN; -FAMOTIDINE 20 MG in NS 50 ML IV PRN; +FAMOTIDINE/PF 20 MG in NORMAL SALINE 50 ML IV PRN; -NORMAL SALINE 250 ML @ KVO IV PRN; +NORMAL SALINE 250 ML IV PRN
[2019-08-27 10:10] VITALS: BP 110/68
== END 2019-08-27 12:35 | disposition home or self-care (01) ==
LOC: II 09:55 → 5TH 09:55 → II 12:35
PROVIDERS: ATTEND Internal Medicine Hematology & Oncology
DX: Z51.11 Encounter for antineoplastic chemotherapy (principal); C50.811 Malignant neoplasm of overlapping sites of right female breast
CPT/HCPCS: 96413; 96367; 96368; J1200; J7050; J9267; S0028; J1100; J1642

== ENCOUNTER 2019-09-03 08:55 | Outpatient (CLI) | payer MEDICAID ==
[~2019-09-03 08:55] MED LIST changes: +DEXAMETHASONE 10 MG in NS 50 ML IV PRN; -DEXAMETHASONE SOD PHOSPHATE 10 MG in NORMAL SALINE 50 ML IV PRN; +DIPHENHYDRAMINE 50 MG in NS 50 ML IV PRN; -DIPHENHYDRAMINE HCL 50 MG in NORMAL SALINE 50 ML IV PRN; +FAMOTIDINE 20 MG in NS 50 ML IV PRN; -FAMOTIDINE/PF 20 MG in NORMAL SALINE 50 ML IV PRN; +NORMAL SALINE 250 ML @ KVO IV PRN; -NORMAL SALINE 250 ML IV PRN
[2019-09-03 09:03] VITALS: BP 120/69
== END 2019-09-03 11:50 | disposition home or self-care (01) ==
LOC: II 08:55 → 5TH 08:58 → II 11:50
PROVIDERS: ATTEND Internal Medicine Hematology & Oncology
DX: Z51.11 Encounter for antineoplastic chemotherapy (principal); C50.811 Malignant neoplasm of overlapping sites of right female breast
CPT/HCPCS: 96413; 96367; J1200; J7050; J9267; S0028; J1100; J1642

== ENCOUNTER 2019-09-10 09:02 | Outpatient (CLI) | payer MEDICAID ==
[~2019-09-10 09:02] MED LIST changes: +NORMAL SALINE 250 ML IV PRN
[2019-09-10 09:38] VITALS: BP 134/66
== END 2019-09-10 12:30 | disposition home or self-care (01) ==
LOC: II 09:02 → 5TH 09:05 → II 12:30
PROVIDERS: ATTEND Internal Medicine Hematology & Oncology
DX: Z51.11 Encounter for antineoplastic chemotherapy (principal); C50.811 Malignant neoplasm of overlapping sites of right female breast
CPT/HCPCS: 96413; 96367; J1200; J7050; J9267; S0028; J1100; J1642

== ENCOUNTER 2019-09-17 09:17 | Outpatient (CLI) | payer MEDICAID ==
[~2019-09-17 09:17] MED LIST changes: -DEXAMETHASONE 10 MG in NS 50 ML IV PRN; +DEXAMETHASONE SOD PHOSPHATE 10 MG in NORMAL SALINE 50 ML IV PRN; -DIPHENHYDRAMINE 50 MG in NS 50 ML IV PRN; +DIPHENHYDRAMINE HCL 50 MG in NORMAL SALINE 50 ML IV PRN; -FAMOTIDINE 20 MG in NS 50 ML IV PRN; +FAMOTIDINE/PF 20 MG in NORMAL SALINE 50 ML IV PRN; -NORMAL SALINE 250 ML @ KVO IV PRN
[2019-09-17 09:23] VITALS: BP 117/62
== END 2019-09-17 12:12 | disposition home or self-care (01) ==
LOC: II 09:17 → 5TH 09:23 → II 12:12
PROVIDERS: ATTEND Internal Medicine Hematology & Oncology
DX: Z51.11 Encounter for antineoplastic chemotherapy (principal); C50.811 Malignant neoplasm of overlapping sites of right female breast
CPT/HCPCS: 96413; 96367; J1200; J7050; J9267; S0028; J1100; J1642

== ENCOUNTER 2019-12-10 07:41 | Day surgery (SDC) | payer MEDICAID ==
[2019-12-05 11:18] LABS: HEMATOCRIT 33.8 % (36.0-47.0); MEAN CORPUSCULAR HEMOGLOBIN 30.6 pg (27.0-33.4); MEAN CORPUSCULAR HGB CONC 35.5 g/dL (32.0-36.0); MEAN CORPUSCULAR VOLUME 86 fl (80-97); PLATELET COUNT 219 10^3/uL (150-450); RED BLOOD COUNT 3.92 10^6/uL (3.72-5.28); RED CELL DISTRIBUTION WIDTH 14.3 % (11.5-14.0); WHITE BLOOD COUNT 2.8 10^3/uL (4.0-10.5)
[2019-12-05 11:44] LABS: ANION GAP 9 (5-19); BLOOD UREA NITROGEN 11 mg/dL (7-20); CALCIUM 9.7 mg/dL (8.4-10.2); CARBON DIOXIDE 26 mmol/L (22-30); CHLORIDE 103 mmol/L (98-107); GLUCOSE 101 mg/dL (75-110); POTASSIUM 4.1 mmol/L (3.6-5.0)
[~2019-12-10 07:41] MED LIST changes: +CEFAZOLIN 1 GM/D5W RTU 1 GM/50 ML RTUPB IV ONE; -DEXAMETHASONE SOD PHOSPHATE 10 MG in NORMAL SALINE 50 ML IV PRN; -DIPHENHYDRAMINE HCL 50 MG in NORMAL SALINE 50 ML IV PRN; -FAMOTIDINE/PF 20 MG in NORMAL SALINE 50 ML IV PRN; +LACTATED RINGERS 1000 ML IV PRN; +LIDOCAINE 0.5% INJ-PF (5 MG/ML) 50 ML SDV SUBCUT PRN; +LIDOCAINE 4% CREAM 5 GM TUBE ONE; -NORMAL SALINE 250 ML IV PRN; -NORMAL SALINE IV PRN; -PACLITAXEL SEMI SYNTHETIC IV PRN
[2019-12-10] MEDS ORDERED: LIDOCAINE 1% INJ-PF (10 MG/ML) 30 ML SDV ONE (08:52)
[2019-12-10] MEDS ORDERED: FENTANYL CITRATE INJ/PF 100 MCG/2 ML AMPUL ONE ×2 (10:22→13:08)
[2019-12-10] MEDS ORDERED: HYDROMORPHONE HCL INJ/PF 2 MG/ML AMPULE ONE (10:22)
[2019-12-10] MEDS ORDERED: MIDAZOLAM 2 MG/2 ML INJ ONE (10:23)
[2019-12-10] MEDS ORDERED: PROPOFOL INJ 200 MG/20 ML VIAL IV ONE (10:23)
[2019-12-10] MEDS ORDERED: METHYLENE BLUE 50 MG/10 ML AMPULE ONE (10:43)
[2019-12-10] MEDS ORDERED: MICROFIBRILLAR COLLAGEN 1 GM PACK ONE (10:43)
[2019-12-10] MEDS ORDERED: LIDOCAINE 1%/EPINEPHRINE INJ 20 ML VIAL ONE (10:44)
[2019-12-10] MEDS ORDERED: EPHEDRINE SULFATE INJ 50 MG/1 ML AMPULE ONE (11:45)
[2019-12-10] MEDS ORDERED: DIPHENHYDRAMINE HCL 50 MG/ML VIAL IV PRN (12:21)
[2019-12-10] MEDS ORDERED: FENTANYL CITRATE INJ/PF 100 MCG/2 ML AMPUL IV PRN ×3 (12:21)
[2019-12-10] MEDS ORDERED: MEPERIDINE HCL/PF INJ 25 MG/1 ML DISP.SYRIN IV PRN (12:21)
[2019-12-10] MEDS ORDERED: MORPHINE SULFATE 10 MG/ML INJ IV PRN (12:21)
[2019-12-10] MEDS ORDERED: PROMETHAZINE HCL INJ 25 MG/1 ML VIAL IV PRN ×2 (12:21)
[2019-12-10] MEDS ORDERED: OXYCODONE-ACETAMINOPHEN 5-325 MG TABLET PO PRN (13:04)
--- NOTE | 2019-12-10 13:04 | Discharge Summary ---
Discharge Summary (SDC) - Discharge Final Diagnosis: Right breast cancer Date of Surgery: 12/10/19 Discharge Date: 12/10/19 Condition: Good Forms: ASU Anesthesia D/C Instruction, Discharge POC-Surgical Service Treatment or Instructions: [facility] [address], [place] [address] Care Instructions Following Your Lumpectomy Activities: Resume normal activities when you feel comfortable. It is best to remain as active as possible to speed your recovery. It is common to experience some fatigue after surgery and you may find that short naps are helpful. Avoid strenuous activity such as weight lifting, tennis, etc at your surgical site for two weeks. Perform gentle arm exercises daily and do not favor your operative arm to due increased risk of mobility issues postoperatively. No driving for 7 days after surgery. Do not drive if you are taking pain medication other than Tylenol or Ibuprofen. No swimming, tub baths or soaking in a hot tub for 4 weeks. There are no dietary restrictions. Do not smoke as this impairs wound healing. Surgical Site care: You may shower 24 hours after surgery to include washing the wound with soap and water using your hands. Do not scrub the incision. Pat the area dry with a towel. Leave skin glue intact. You do not need to recover the wound although some patients find that they feel more comfortable using a light dressing for a few days to absorb any minimal drainage which may occur. Do not use heating pad or apply an ice pack to the operative site. You may apply deodorant if you are careful to avoid getting it on the wound itself. Medications: Take Toradol 10mg one pill by mouth every six hours as needed for pain. Do not take additional NSAIDs with medication. You may take Tylenol as needed. Resume all of your normal prescription medications after your surgery unless instructed otherwise. You may experience constipation after surgery while taking pain medications. If using a narcotic on a regular basis, take a stool softener such as Colace twice a day. It is helpful to stay hydrated by drinking lots of fluids. Walking is also helpful and is good exercise after surgery. If you need extra help, use Milk of Magnesia according to the directions on the package. Follow-up: Call our office at to make a follow-up appointment in 10-14 days. Your doctor will call to discuss the pathology report with you as soon as it is available. Concerns: If you had a sentinel lymph node biopsy with your mastectomy, your urine may have a greenish discoloration. This is normal and will resolve as the blue dye slowly leaves your system. If you notice significant leakage around the drains, this is not normal. The drains may be clogged. Please call our office to come in immediately for the drains to be checked. Some bruising may occur and will go away over time. If you have a fever of 101.5 or greater, chills, redness at the incision site, excessive drainage from your wound or severe pain not relieved by pain medication, call your doctor. A physician is available 24 hours a day 7 days a week in addition to regular office hours. If problems arise after normal office hours please call the hospital at . Please call if you have any questions or concerns. Prescriptions: Ketorolac Tromethamine [Toradol 10 mg Tablet] 10 mg PO Q6HP PRN #20 tablet PRN Reason: Referrals: DAVID PADILLA MD [ACTIVE STAFF] - Discharge Diet: As Tolerated Discharge Activity: Balance Activity w/Rest, No Lifting Over 10 Pounds, No Lifting/Push/Pulling, No tub bath, Walk Frequently Report the Following to Your Physician Immediately: Increase in Pain, Fever over 101 Degrees, Unusual Bleeding, Redness, Swelling, Warmth, Increased Soreness, Drainage-Foul Smelling, Large Clots
--- NOTE | 2019-12-10 13:11 | Operative Report ---
Operative Report DATE OF SURGERY: 12/10/19 PREOPERATIVE DIAGNOSIS: 1. 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 2. Status post neoadjuvant chemotherapy POSTOPERATIVE DIAGNOSIS: Same with clinical and radiographic evidence of complete response to NAC OPERATION: 1. Needle localized right open breast lumpectomy with resection of deep cavity margin. 2. [place] lymph node biopsy x3 including removal of pre- neoadjuvant clipped node. 3. Interpretation of multiple intraoperative specimen radiographs. 4. Use of intraoperative ultrasonography SURGEON: DAVID FERRERA DUDE WRANGLER: JACKIE DUMONT ANESTHESIA: GA TISSUE REMOVED OR ALTERED: 5 specimens including lumpectomy specimen, ectomy deep cavity margin, and 3 sentinel lymph nodes including clipped node COMPLICATIONS: None ESTIMATED BLOOD LOSS: Minimal INTRAOPERATIVE FINDINGS: See below PROCEDURE: Patient was seen in the preop holding area with the right axilla was marked and the neoprobe used to demonstrated uptake into the right axilla following a lymphoscintigraphy. In addition the patient underwent needle localization of the clip at site of previously biopsied index tumor the 11 o'clock position of the right breast. The patient was taken to the main operating room where general anesthesia was induced via LMA. Surgical plan surgical timeout were conducted. The right breast was exposed right arm abducted, and the right breast injected with approximately 3 cc of full-strength methylene blue at the 10 o'clock position areole or border. Right breast was massaged. Redundant wire was clipped leaving approximately 3 cm of the wire outside of the skin. The right breast and right axilla were then prepped and draped in sterile fashion. Final timeout was conducted. We now proceeded with the right breast lumpectomy. Real-time ultrasound was used to guide the dissection in terms of following the needle into the deep subcutaneous tissue and breast parenchyma. The skin was anesthetized 1% plain lidocaine. Approximately 5 cm slightly curvilinear incision was made from the 11:00 to the 12 o'clock position of the right breast encompassing the wire. A generous lumpectomy specimen was removed from the right breast using electrocautery dissection. The specimen was oriented with a short suture in the superior position and a long suture in the lateral position. It was now imaged with the specimen radiograph device in the operating room demonstrating retention of the wire and needle but no evidence of clip. Specimen was sent as lumpectomy, specimen A. We inspected the cavity visually, as well as by palpation and no clip could be appreciated. I also used intraoperative ultrasound and could not definitively identify a clip in the patient's right breast. We elected to revisit this situation We now proceeded with sentinel lymph node biopsy and removal of right axillary clipped node pre-neoadjuvant therapy. Skin was anesthetized with 1% plain lidocaine in the mid axilla. Skin was incised with a #10 blade for length of approximately 4-1/2 cm. [place] node biopsy was performed using blue dye for tracking, and intraoperative neoprobe tracking. The first sentinel lymph node was blue hot with an in vivo count of 24,887, and an ex vivo count of 32,679. It was placed on a Darron dish and imaged with the specimen radiograph machine and demonstrated to contain the pre-neoadjuvant clip. This was sent for permanent analysis. 2 additional sentinel lymph nodes were removed, both blue and hot in the low axilla. The second sentinel lymph node had an in vivo count of 6107 and an ex vivo count of 4882. The right sentinel lymph node was blue and hot with an in vivo count of 3534 and an ex vivo count of 2393. Background counts were negligible. In summary 3 sentinel lymph nodes were removed from the patient's right axilla all 3 blue and all 3 hot, with the first sentinel node containing the pre-neoadjuvant therapy clip. Hemostasis was accomplished with electrocautery and clips, and Avitene was placed in the recesses of the axilla We now turned our attention to the right lumpectomy site. I elected to proceed with resection of a portion of the deep anterior and inferior cavity margin. A portion of breast tissue was removed approximately 3 x 4 x 2 cm. This she was just distal or deep to the initial lumpectomy site. It was placed on a Darron dish and imaged with the specimen Machine in the operating room and found to contain the clip. The specimen was not marked for orientation. It was sent as specimen E, right breast deep cavity margin. At this point I felt the operation was complete. Sponge and needle counts were correct. Wounds were inspected for bleeding and there was none. Wounds were closed with 3-0 Vicryl, skin glue. Patient tolerated the procedure well, taken to the recovery room in stable condition. The physician mailroom assistant, Ms. Campbell, provided assistance during this case by: Assisting, retracting tissue, instillation of local anesthesia and closure of skin incisions. Of note I phoned Dr. Recinos, pathologist, and reviewed all of the specimens, labeling and location of clips.
[2019-12-10] MEDS: OXYCODONE-ACETAMINOPHEN 5-325 MG TABLET ONE ×2 (14:00→14:20)
[2019-12-10] MEDS ORDERED: ONDANSETRON HCL INJ/PF 4 MG/2 ML SDV ONE (14:11)
[2019-12-10] MEDS ORDERED: PHENYLEPHRINE HCL INJ/PF 10 MG/1 ML SDV ONE (14:11)
[2019-12-10] MEDS ORDERED: DEXAMETHASONE SOD PHOSPHATE INJ 4 MG/1 ML VIAL ONE (14:11)
[2019-12-10] MEDS ORDERED: GLYCOPYRROLATE 1 MG/5 ML VIAL ONE (14:11)
--- NOTE | 2019-12-10 15:16 | WOMENS IMAGING REPORT ---
EXAM DESCRIPTION: RIGHT DIAGNOSTIC MAMMO W/CAD IMAGES COMPLETED DATE/TIME: 12/10/2019 10:31 am REASON FOR STUDY: RT BREAST C50.919 C50.911 MALIGNANT NEOPLASM OF UNSP SITE OF RIGHT FEMALE MEDARDO COMPARISON: Chest CT dated June 10 TECHNIQUE: The biopsy marker in the right breast was localized mammographically using a grid marker . The skin of the breast was prepped in sterile fashion and local anesthesia was provided. The loca [employer] needle was advanced to the target. The tip was positioned adjacent to the target and confir med with two orthogonal views. Surgical dye was not injected for this procedure. The wire was placed through the needle and the hook engaged. Post procedure mammogram demonstrates satisfactory position of the needle and wire. Specimen radiograph demonstrates the intact localization wire as well as the targeted lesion within t he biopsy specimen. LIMITATIONS: None. FINDINGS: Procedure as above. Pathology: Pending. IMPRESSION: SUCCESSFUL NEEDLE LOCALIZATION OF THE LESION IN THE RIGHT BREAST. FOLLOW-UP PER THE PATIENT'S SURGEON. TECHNICAL DOCUMENTATION: JOB ID: [id number] 2010 [employer]- All Rights Reserved Reading location - IP/workstation name: [email or web address]
--- NOTE | 2019-12-10 15:18 | RADIOLOGY REPORT (SQ) ---
EXAM DESCRIPTION: NM LYMPHATICS/LYMPH GLANDS IMAGES COMPLETED DATE/TIME: 12/10/2019 10:15 am REASON FOR STUDY: RIGHT BREAST CANCER C50.911 MALIGNANT NEOPLASM OF UNSP SITE OF RIGHT FEMALE MEDARDO COMPARISON: Chest CT dated 06/11/2019 RADIONUCLIDE AND DOSE: 588 microcuries TC-99m tilmanocept - [employer]. The route of agent administration: Subcutaneous in the skin. TECHNIQUE: The skin of the right breast was prepped in sterile fashion. The radiopharmaceutical was administered in equally divided doses in the periareolar breast. LIMITATIONS: None. FINDINGS: Images demonstrate activity at the injection site with migration to the sentinel draining lymph nodes. IMPRESSION: ADMINISTRATION OF RADIOPHARMACEUTICAL FOR SENTINEL LYMPH NODE EVALUATION. TECHNICAL DOCUMENTATION: JOB ID: [id number] 2010 [employer]- All Rights Reserved Reading location - IP/workstation name: [email or web address]
--- NOTE | 2019-12-10 15:19 | WOMENS IMAGING REPORT ---
EXAM DESCRIPTION: WIRE LOC MAMMO IMAGES COMPLETED DATE/TIME: 12/10/2019 10:32 am REASON FOR STUDY: C50.911 MALIGNANT NEOPLASM OF UNSP SITE OF RIGHT FEMALE BREAST C50.911 MALIGNANT NEOPLASM OF UNSP SITE OF RIGHT FEMALE MEDARDO COMPARISON: Chest CT dated 06/11/2019 TECHNIQUE: The biopsy marker in the right breast was localized mammographically using a grid marker . The skin of the breast was prepped in sterile fashion and local anesthesia was provided. The loca lization needle was advanced to the target. The tip was positioned adjacent to the target and confir med with two orthogonal views. Surgical dye was not injected for this procedure. The wire was placed through the needle and the hook engaged. Post procedure mammogram demonstrates satisfactory position of the needle and wire. Specimen radiograph demonstrates the intact localization wire as well as the targeted lesion within t he biopsy specimen. LIMITATIONS: None. FINDINGS: Procedure as above. Pathology: Pending. IMPRESSION: SUCCESSFUL NEEDLE LOCALIZATION OF THE LESION IN THE RIGHT BREAST. FOLLOW-UP PER THE PATIENT'S SURGEON. TECHNICAL DOCUMENTATION: JOB ID: [id number] 2010 [employer]- All Rights Reserved Reading location - IP/workstation name: [email or web address]
--- NOTE | 2019-12-10 15:21 | RADIOLOGY REPORT (SQ) ---
EXAM DESCRIPTION: BREAST SPECIMEN IMAGES COMPLETED DATE/TIME: 12/10/2019 1:02 pm REASON FOR STUDY: RIGHT BREAST SPECIMEN IN OR C50.911 MALIGNANT NEOPLASM OF UNSP SITE OF RIGHT FEMA LE MEDARDO COMPARISON: None. TECHNIQUE: Specimen radiograph from breast procedure performed in the operating room. LIMITATIONS: None. FINDINGS: Specimen radiograph from breast procedure performed in the operating room. Images demonst rate the localization wire and the breast biopsy marker as well as a lymph node with a biopsy marker. Please see procedure note for details and final pathology. IMPRESSION: Specimen radiographs demonstrating localization wire and biopsy markers. TECHNICAL DOCUMENTATION: JOB ID: [id number] Reading location - IP/workstation name: [email or web address]
[2019-12-10 17:25] VITALS: BP 126/83
== END 2019-12-10 15:45 | disposition home or self-care (01) ==
LOC: OROUT 07:41
PROVIDERS: ATTEND Surgery
DX: C50.911 Malignant neoplasm of unspecified site of right female breast (principal); N60.11 Diffuse cystic mastopathy of right breast; D76.3 Other histiocytosis syndromes; D64.9 Anemia, unspecified; Z80.3 Family history of malignant neoplasm of breast; Z79.899 Other long term (current) drug therapy; Z03.818 Encounter for observation for suspected exposure to other biological agents ruled out
CPT/HCPCS: 36415; 85027; 87635; 81025; 80048; 88342 ×2; 88305 ×2; 88307 ×2; 78195; 01610; 19281; 76098; 77065; 19301; 38525; A9520; J2250; J0690; J1100; J3490 ×6; J3010; J1170; J2370; J2405; J2704; Q9968; C9803; 1610

== ENCOUNTER → 2019-12-11 | Outpatient (CLI) | payer MEDICAID ==
--- NOTE | 2019-12-14 10:38 | WOMENS IMAGING REPORT ---
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 IMPRESSION: Please see combined report for performance of procedure and radiologic supervision and i nterpretation. Reading location - IP/workstation name: [email or web address]
== END ==
LOC: WI 10:23
PROVIDERS: ATTEND Surgery
DX: C50.919 Malignant neoplasm of unspecified site of unspecified female breast (principal)
CPT/HCPCS: 76098

== ENCOUNTER → 2020-01-12 | Outpatient (CLI) | payer MEDICAID | LOC: OD 10:26 | PROVIDERS: ATTEND Radiology Radiation Oncology | DX: C50.911 Malignant neoplasm of unspecified site of right female breast (principal) | CPT/HCPCS: 36415; 84703 ==

== ENCOUNTER → 2020-02-03 | Outpatient (CLI) | payer MEDICAID ==
--- NOTE | 2020-02-03 14:20 | RADIOLOGY REPORT (SQ) ---
EXAM DESCRIPTION: VENOUS UNILATERAL UPPER IMAGES COMPLETED DATE/TIME: 02/03/2020 2:07 pm REASON FOR STUDY: RUE PAIN/SWELLING R29.898 OTH SYMPTOMS AND SIGNS INVOLVING THE MUSCULOSKELETAL C5 0.919 MALIGNANT NEOPLASM OF UNSP SITE OF UNSPECIFIED FEMAL COMPARISON: None. TECHNIQUE: Dynamic and static hernandez scale and color images acquired of the right arm venous system. S elected spectral images acquired with additional compression and augmentation maneuvers. The contrala teral subclavian vein and internal jugular vein were also imaged. Images stored on PACS. LIMITATIONS: None. FINDINGS: INTERNAL JUGULAR VEIN: Normal phasicity, compression, augmentation. No visualized echogeni c material on hernandez scale. No defects on color images. Comparison opposite side normal. SUBCLAVIAN VEIN: Normal compression, augmentation. No visualized echogenic material on hernandez scale. No defects on color images. AXILLARY VEIN: Normal compression, augmentation. No visualized echogenic material on hernandez scale. No d efects on color images. BRACHIAL VEIN: Normal compression, augmentation. No visualized echogenic material on hernandez scale. No d efects on color images. BASILIC VEIN: Normal compression, augmentation. No visualized echogenic material on hernandez scale. No de fects on color images. CEPHALIC VEIN: Normal compression, augmentation. No visualized echogenic material on hernandez scale. No d efects on color images. OTHER: No other significant finding. CONTRALATERAL SUBCLAVIAN VEIN AND INTERNAL JUGULAR VEIN: Normal phasicity, compression and augmentation. No visualized echogenic material on ehrnandez scale. No de fects on color images. IMPRESSION: NO EVIDENCE DVT OR SVT IN THE RIGHT ARM. TECHNICAL DOCUMENTATION: JOB ID: [id number] 2010 [employer]- All Rights Reserved Reading location - IP/workstation name: [email or web address]
== END ==
LOC: SP 12:54
PROVIDERS: ATTEND Surgery
DX: R29.898 Other symptoms and signs involving the musculoskeletal system (principal); C50.919 Malignant neoplasm of unspecified site of unspecified female breast
CPT/HCPCS: 93971